=== PATIENT | male | born 2000 | race Two or more races ===

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

== ENCOUNTER → 2022-06-17 | Emergency (ER) | payer MEDICAID, OTHER ==
[~2022-06-17] VITALS: Ht 180.3 cm; Wt 94.1 kg
[~2022-06-17] MED LIST: IBUP800T27 PO; KETOROLAC TROMETH 60MG/2ML VIAL IM ONE; METH750T22 PO
[2022-06-17 11:28] VITALS: BP 132/68
== END | disposition home or self-care (01) ==
LOC: ER 11:10
DX: S83.92XA Sprain of unspecified site of left knee, initial encounter (principal); X58.XXXA Exposure to other specified factors, initial encounter; Y93.A3 Activity, aerobic and step exercise; Y92.89 Other specified places as the place of occurrence of the external cause; Y99.8 Other external cause status
CPT/HCPCS: 73562; 96372; 99283; J1885